=== PATIENT | male | born 1930 | race Caucasian/White ===

== ENCOUNTER 2018-03-27 17:58 | Observation (INO) | payer BC, MEDICARE ==
[~2018-03-27] VITALS: Ht 172.7 cm; Wt 91.2 kg
[~2018-03-27 17:58] MED LIST: CALCIUM; CALCIUM + VITA1 EACH; DIOVAN160 MG PO; LIPITOR20 MG PO; MULTAQ400 MG PO; NEXIUM40 MG PO; VITAMIN E; XARELTO20 MG PO; Z.0.ATORVASTATIN CA2; Z.0.DIOVAN160 MG PO; Z.0.NEXIUM40 MG PO; Z.0.VITAMIN C500 MG PO
[2018-03-27 18:25] LABS: BASOPHILS # (AUTO) 0.1 (0.0-0.1); BASOPHILS % 1.2 % (0.0-1.0); EOSINOPHILS # (AUTO) 0.1 (0.0-0.4); EOSINOPHILS % 2.3 % (0.0-6.0); HEMATOCRIT 42.3 % (38.2-49.6); HEMOGLOBIN 13.8 g/dL (14.0-18.0); LYMPHOCYTES # (AUTO) 1.1 (1.0-3.2); LYMPHOCYTES % 23.2 % (18.0-39.1); MEAN CORPUSCULAR HEMOGLOBIN 27.2 pg (28-32); MEAN CORPUSCULAR HGB CONC 32.6 g/dL (31-35); MEAN CORPUSCULAR VOLUME 83.4 fL (81-99); MONOCYTES # (AUTO) 0.3 (0.2-0.8); MONOCYTES % 6.4 % (4.4-11.3); NEUTROPHILS # (AUTO) 3.2 (2.1-6.9); NEUTROPHILS % 66.3 % (38.7-80.0); PLATELET COUNT 178 x10e3/uL (140-360); RED BLOOD COUNT 5.07 x10e6/uL (4.3-5.7); RED CELL DISTRIBUTION WIDTH 14.4 % (11.7-14.4)
[2018-03-27] MEDS ORDERED: ASPIRIN 81 MG CHEW TAB PO ONE (18:30)
[2018-03-27 18:40] LABS: ALANINE AMINOTRANSFERASE 21 IU/L (0-55); ALBUMIN/GLOBULIN RATIO 1.5 (0.8-2.0); ALKALINE PHOSPHATASE 104 IU/L (40-150); ANION GAP 13.4 mmol/L (8-16); BLOOD UREA NITROGEN 19 mg/dL (7-26); BUN/CREATININE RATIO 13 (6-25); CALCIUM 9.7 mg/dL (8.4-10.2); CARBON DIOXIDE 22 mmol/L (22-29); CHLORIDE 110 mmol/L (98-107); CREATINE KINASE 139 IU/L (30-200); CREATININE, SERUM 1.47 mg/dL (0.72-1.25); EST GLOMERULAR FILTRATION RATE 45 ML/MIN (60-); GLUCOSE 250 mg/dL (74-118); POTASSIUM 3.4 mmol/L (3.5-5.1); SODIUM 142 mmol/L (136-145)
[2018-03-27 18:41] LABS: INR 1.7; PROTHROMBIN TIME 18.8 seconds (11.9-14.5)
[2018-03-27 18:42] LABS: PARTIAL THROMBOPLASTIN TIME 36.5 seconds (23.8-35.5)
[2018-03-27 18:48] LABS: DIGOXIN < 0.30 ng/mL (0.8-2.0)
--- NOTE | 2018-03-27 18:54 | Diagnostic Imaging Report ---
PROCEDURE: Frontal and lateral views of the chest. COMPARISON: Patients [facility], DX, CHEST 2 VIEWS, 02/20/2015, 9:12. INDICATIONS: a-fib, sob today FINDINGS: Lines/tubes: None. Lungs: The lungs are well inflated and clear. There is no evidence of pneumonia or pulmonary edema. Pleura: There is no pleural effusion or pneumothorax. Heart and mediastinum: Cardiac silhouette is unremarkable. Pulmonary vessels are normal. Bones: No acute bony abnormality. IMPRESSION: 1. No acute cardiopulmonary abnormalities. Maco Montez M.D. Dictated by: Maco Montez M.D. on 03/27/2018 at 18:58 Electronically approved by: Maco Montez M.D. on 03/27/2018 at 18:58
[2018-03-27] MEDS ORDERED: DIGOXIN INJ 0.25 MG/ML 2 ML AMP IV ONE (19:00)
[2018-03-27 19:56] LABS: BILIRUBIN,URINE NEGATIVE (NEGATIVE); CLARITY,URINE CLEAR (CLEAR); COLOR,URINE YELLOW (YELLOW); KETONES,URINE NEGATIVE (NEGATIVE); LEUKOCYTE ESTERASE ,URINE NEGATIVE (NEGATIVE); NITRITE,URINE NEGATIVE (NEGATIVE); PROTEIN,URINE DIPSTICK 1+ (NEGATIVE); URINE UROBILINOGEN 1 mg/dL (0.2 - 1)
[2018-03-27 19:59] LABS: AMORPHOUS SEDIMENT,URINE RARE (FEW); EPITHELIAL CELLS,URINE FEW /LPF; MUCUS,URINE FEW (RARE)
[2018-03-27] MEDS ORDERED: DEXTROSE 50% SYRINGE 50 ML IV PRN (20:45)
[2018-03-27] MEDS ORDERED: ONDANSETRON HCL INJ 2 MG/ML VIAL IV PRN (20:45)
[2018-03-27 21:00] VITALS: BP 160/78
[2018-03-27] MEDS: INSULIN REGULAR, HUMAN 100 UNIT/1 ML 3ML VIAL SQ SCH (21:00)
[2018-03-27 21:20] VITALS: BP 160/78
[2018-03-27] MEDS ORDERED: POTASSIUM CHLORIDE 20 MEQ TAB CR PO STA (21:57)
[2018-03-27] MEDS ORDERED: DIGOXIN125 MCG PO (22:30)
[2018-03-27] MEDS: SODIUM CHLORIDE 0.9% 1000ML 1,000 ML IV SCH (22:56)
[2018-03-27] MEDS: FAMOTIDINE 20 MG/2 ML VIAL IV SCH (22:56)
[2018-03-28] VITALS (8 sets, daily range): BP systolic 122–160; BP diastolic 63–76
[2018-03-28 04:31] LABS: CREATINE KINASE MB 2.5 ng/mL (0-5.0)
[2018-03-28 06:31] LABS: BASOPHILS % 0.9 % (0.0-1.0); EOSINOPHILS # (AUTO) 0.1 (0.0-0.4); EOSINOPHILS % 2.6 % (0.0-6.0); HEMATOCRIT 37.5 % (38.2-49.6); HEMOGLOBIN 12.2 g/dL (14.0-18.0); LYMPHOCYTES # (AUTO) 1.1 (1.0-3.2); LYMPHOCYTES % 24.7 % (18.0-39.1); MEAN CORPUSCULAR HEMOGLOBIN 27.5 pg (28-32); MEAN CORPUSCULAR HGB CONC 32.5 g/dL (31-35); MEAN CORPUSCULAR VOLUME 84.7 fL (81-99); MONOCYTES # (AUTO) 0.4 (0.2-0.8); MONOCYTES % 9.2 % (4.4-11.3); NEUTROPHILS # (AUTO) 2.6 (2.1-6.9); NEUTROPHILS % 62.1 % (38.7-80.0); PLATELET COUNT 133 x10e3/uL (140-360); RED BLOOD COUNT 4.43 x10e6/uL (4.3-5.7); RED CELL DISTRIBUTION WIDTH 14.2 % (11.7-14.4)
[2018-03-28 06:55] LABS: ALANINE AMINOTRANSFERASE 17 IU/L (0-55); ALBUMIN 3.3 g/dL (3.5-5.0); ALBUMIN/GLOBULIN RATIO 1.5 (0.8-2.0); ALKALINE PHOSPHATASE 89 IU/L (40-150); ANION GAP 10.8 mmol/L (8-16); BLOOD UREA NITROGEN 16 mg/dL (7-26); BUN/CREATININE RATIO 15 (6-25); CALCIUM 8.9 mg/dL (8.4-10.2); CARBON DIOXIDE 21 mmol/L (22-29); CHLORIDE 114 mmol/L (98-107); CHOL/HDL RATIO 5.6 (3.9-4.7); CHOLESTEROL 134 MD/DL (0-199); CREATININE, SERUM 1.04 mg/dL (0.72-1.25); EST GLOMERULAR FILTRATION RATE > 60 ML/MIN (60-); GLUCOSE 110 mg/dL (74-118); HDL CHOLESTEROL 24 MG/DL (40-60); LDL CHOLESTEROL 83 MG/DL (60-130); POTASSIUM 3.8 mmol/L (3.5-5.1); SODIUM 142 mmol/L (136-145); TRIGLYCERIDES 136 MG/DL (0-149)
[2018-03-28 06:57] LABS: MAGNESIUM 1.1 MG/DL (1.3-2.1)
[2018-03-28] MEDS: INSULIN REGULAR, HUMAN 100 UNIT/1 ML 3ML VIAL SQ SCH ×4 (07:30→20:14)
[2018-03-28] MEDS ORDERED: MAGNESIUM SULFATE 2GM/50ML 50 ML IV ONE (07:30)
[2018-03-28] MEDS: SODIUM CHLORIDE 0.9% 1000ML 1,000 ML IV SCH ×3 (08:14→20:25)
[2018-03-28] MEDS: FAMOTIDINE 20 MG/2 ML VIAL IV SCH ×2 (08:14→20:13)
[2018-03-28 10:33] LABS: CREATINE KINASE MB 2.3 ng/mL (0-5.0)
[2018-03-28] MEDS ORDERED: LEVALBUTEROL HCL SOLN NEBU 0.63 MG/3 ML NEB INH ONE (15:00)
[2018-03-28] MEDS: IPRATROPIUM BROMIDE 0.02% 2.5 ML NEB NEB SCH ×2 (15:00→22:05)
[2018-03-28] MEDS ORDERED: HYDROCORTISONE SOD SUCCINATE 100 MG VIAL IV ONE (15:00)
[2018-03-28] MEDS ORDERED: SODIUM BICARBONATE 650 MG TAB PO ONE (15:30)
[2018-03-28] MEDS ORDERED: RIVAROXABAN 15 MG TABLET PO SCH (17:00)
--- NOTE | 2018-03-28 17:47 | History and Physical ---
HISTORY OF PRESENT ILLNESS: Patient is 87-year-old with past medical history positive for hypertension. Apparently he was shopping and he started having very fast palpitations and he started feeling nauseated, and he started feeling very weak, and called and came to the emergency room. He was found to have an atrial flutter with rapid ventricular response. Digoxin was given and heart rate now is back to normal. REVIEW OF SYSTEMS: CARDIOVASCULAR: He did have chest pain and palpitations when the heart rate was going fast, and now he is feeling better. RESPIRATORY: No shortness of breath. No cough. GASTROINTESTINAL: No nausea, vomiting or diarrhea. GENITOURINARY: No frequency and no dysuria. ALLERGIES: NOT ALLERGIC TO ANY MEDICATION. SOCIAL HISTORY: He does not smoke and does not drink. PAST MEDICAL HISTORY: Only positive for hypertension, according to the patient. He denies any cardiac condition. PHYSICAL EXAMINATION: VITAL SIGNS: Blood pressure 149/76, temperature 98 degrees, heart rate 61 per minute, respiratory rate is 18 per minute HEART: Irregular heart rate. Normal S1 and S2. No extra sounds. LUNGS: Clear bilaterally. ABDOMEN: Soft. EXTREMITIES: Show no evidence of cyanosis, edema or trauma. LABORATORY DATA: On the blood work we have BMP sodium 142, potassium 3.7, chloride 114. CO2 21, BUN 16, creatinine 1.04. Glucose 110. CBC: White blood count 4.25, hemoglobin 12.2, hematocrit 37.5, platelet count 153,000. PT 18.8. INR 1.70. PTT 36.5. AST 17, ALT 17. Total bilirubin 0.7, alkaline phosphatase of 89. EKG showed atrial collateral with by viable heart rate. No evidence of any ST segment elevation or depression. Current heart rate is in the 60s. FINAL IMPRESSION 1. Atrial flutter with rapid ventricular response with tachycardia. 2. Hypertension. PLAN OF TREATMENT: Patient received digoxin. The heart rate is in the 50s and 60s, so he does not need any beta catracho right now, only calcium channel catracho. Continue Pepcid 20 mg twice a day. Continue IV fluids. Will consult Dr. Ricketts for cardiology. Echocardiogram. TSH has been ordered. The patient is on telemetry also. Magnesium was replaced. We are going to follow up . Job#: [id number] CORTEZ
[2018-03-28] MEDS ORDERED: BUDESONIDE/FORMOTEROL 160/4.5MCG INHALER INH SCH (19:00)
--- NOTE | 2018-03-28 20:39 | Consultation ---
DATE OF CONSULTATION: March 27, 2018 CARDIOLOGY CONSULTATION ATTENDING PHYSICIAN: Dr. Anne. CLINICAL HISTORY: This is an 87-year-old white man known to our service from previous evaluations by Dr. Reggie Love, admitted via the senior care because of progressive shortness of breath of 2 days' duration with EKG showing atrial flutter with a rate of approximately 100 beats per minute. This patient was hospitalized in 2012, underwent nuclear stress test which showed ejection fraction of 64% without definite ischemic changes. The echocardiogram showed ejection fraction of 55% with mild mitral regurgitation and dilated left atrium. He had atrial flutter at that time. He was placed on Multaq and Xarelto. There is a history of hyperlipidemia. There is history of bleeding, but most recently the patient was taking Xarelto 20 mg per day. He was seen in the office in February. At that time, he was also taking Diovan 160 mg per day. As far as I know, he was off Multaq, although on his hospital medication list, he still on Multaq. He was seen by the emergency physician, was hospitalized. Cardiology consultation requested. PAST MEDICAL HISTORY: Remarkable for chronic atrial fibrillation dating back to 2007, hypertension, and hyperlipidemia. PAST SURGICAL HISTORY: Include cholecystectomy, TURP for benign prostatic hypertrophy. FAMILY HISTORY: Noncontributory. PERSONAL/SOCIAL HISTORY: He was a cigarette smoker, but has not smoked recently. Denies drinking. ALLERGIES: NONE KNOWN. REVIEW OF SYSTEMS: Noncontributory except for kidney stones remotely and bleeding. PHYSICAL EXAMINATION GENERAL: He is elderly, alert and coherent, appears to be short of breath. CARDIAC: Jugular veins are not distended. S1 and S2 were distant, irregular. LUNGS: Show diffuse wheezing. ABDOMEN: Soft. Bowel sounds are present. EXTREMITIES: Show no cyanosis, clubbing, or edema. LABORATORY STUDIES: Magnesium is 1.1. Electrolytes are normal. Bicarb is 21. Albumin is 3.3. Triglyceride 136, cholesterol 134, LDL 83, and HDL 24. Digoxin level was less than 0.3. Urinalysis showed 6 to 10 rbc's, 6 to 10 wbc's, 1+ protein, and 1+ blood. INR is 1.7. IMPRESSION 1. Shortness of breath, probably due to chronic obstructive pulmonary disease rather than congestive heart failure since previous ejection fractions were normal, although repeat echocardiogram may be worthwhile that has not been done since 2012. 2. Possible hypoadrenalism at his age, although the magnesium level is not elevated. 3. Chronic atrial flutter. 4. Microhematuria. 5. History of hyperlipidemia. 6. History of hypertension. RECOMMENDATION: I do not believe the patient would benefit from Multaq. Most recent office list did not include this medication. Because of microhematuria and his age, I recommend decrease the Xarelto from 20 mg to 15 mg per day. Because of his age, he can probably be off the Lipitor as well as Nexium, particularly if he has no GI complains at this time. He may be benefit from bronchodilators. I will give him one dose of Solu-Cortef to see if that would not help him. Thank you very much. Job#: [id number] MARLONU cc:ALEE ANNE MD
[2018-03-29 04:35] VITALS: BP 153/70
[2018-03-29] MEDS: IPRATROPIUM BROMIDE 0.02% 2.5 ML NEB NEB SCH (06:21)
[2018-03-29 07:01] LABS: ANION GAP 10.6 mmol/L (8-16); BLOOD UREA NITROGEN 16 mg/dL (7-26); BUN/CREATININE RATIO 16 (6-25); CALCIUM 8.5 mg/dL (8.4-10.2); CARBON DIOXIDE 20 mmol/L (22-29); CHLORIDE 117 mmol/L (98-107); CREATININE, SERUM 0.98 mg/dL (0.72-1.25); EST GLOMERULAR FILTRATION RATE > 60 ML/MIN (60-); GLUCOSE 136 mg/dL (74-118); MAGNESIUM 1.4 MG/DL (1.3-2.1); POTASSIUM 3.6 mmol/L (3.5-5.1); SODIUM 144 mmol/L (136-145)
[2018-03-29] MEDS: INSULIN REGULAR, HUMAN 100 UNIT/1 ML 3ML VIAL SQ SCH ×2 (07:30→12:26)
[2018-03-29] MEDS: SODIUM CHLORIDE 0.9% 1000ML 1,000 ML IV SCH (07:55)
[2018-03-29 08:02] VITALS: BP 154/69
[2018-03-29] MEDS: FAMOTIDINE 20 MG/2 ML VIAL IV SCH (08:53)
[2018-03-29] MEDS ORDERED: DIGOXIN 0.125 MG TAB PO SCH (09:00)
[2018-03-29] MEDS ORDERED: VALSARTAN 160 MG TAB PO SCH (09:00)
[2018-03-29] MEDS ORDERED: METOPROLOL SUCCINATE 50 MG TAB XL PO SCH (09:00)
[2018-03-29 12:40] VITALS: BP 155/67
--- NOTE | 2018-03-29 13:03 | Cardiology Report ---
DATE OF STUDY: March 28, 2018 ECHOCARDIOGRAM M-MODE: Top normal left atrial size. Normal left ventricular wall thickness, contractility. Normal mitral aortic valves. No pericardial effusion. SECTOR SCAN: Top normal left atrial size. Borderline left ventricular hypertrophy. Normal contractility. Normal mitral and aortic valves. No pericardial effusion. CARDIAC DOPPLER STUDY WITH COLOR: Trace mitral tricuspid and pulmonic regurgitation. CONCLUSIONS: 1. Borderline left ventricular hypertrophy with ejection fraction of approximately 60%. 2. Trace mitral regurgitation with top normal left atrial size. 3. Trace tricuspid and pulmonic regurgitation. Job#: [id number] cc:ALEE ANNE MD
[2018-03-29] MEDS ORDERED: ACETAMINOPHEN 325 MG TAB PO PRN (13:15)
--- NOTE | 2018-03-30 00:26 | Discharge Summary ---
HISTORY OF PRESENT ILLNESS: [id number] male with past medical history positive for atrial flutter, chronic atrial fibrillation, hypertension, hyperlipidemia, came with shortness of breath. EKG showed atrial flutter. Patient is doing fine. Troponins are negative. Patient has been seen by Dr. Ricketts whose impression is that he has had A-flutter, AFib and he recommended patient to continue taking low-dose Xarelto. PHYSICAL EXAM: Heart: Showed irregularly irregular heart rate, normal S1 and S2 sounds. Lungs: Clear bilaterally. Abdomen: Soft. FINAL IMPRESSION: 1. Episode of atrial flutter, atrial fibrillation with rapid ventricular response, which is resolved right now. 2. History of hypertension. 3. Questionable chronic obstructive pulmonary disease. Patient is going to be discharged home on the following medications: Digoxin 0.125 mg daily, Diovan 160 mg daily, Xarelto 15 mg daily, budesonide twice a day. Follow up with Dr. Reggie Love, cardiology in a week. ALEE ANNE MD Job#: [id number]
== END 2018-03-29 14:14 | disposition home or self-care (01) ==
LOC: ER 17:58 → ERHOLD 20:56 → IMCU 21:18
PROVIDERS: ADMIT Internal Medicine; ATTEND Internal Medicine
DX: I48.92 Unspecified atrial flutter (principal); I10 Essential (primary) hypertension; E11.9 Type 2 diabetes mellitus without complications; I51.9 Heart disease, unspecified; J44.9 Chronic obstructive pulmonary disease, unspecified; R31.29 Other microscopic hematuria; E78.5 Hyperlipidemia, unspecified; E83.42 Hypomagnesemia; I48.2 Chronic atrial fibrillation
CPT/HCPCS: 36415 ×3; 71046; 80048; 80053 ×2; 80061; 80162; 81001; 82550 ×2; 82553 ×2; 82948 ×3; 83735 ×2; 83880; 84132; 84443; 84484 ×2; 85025 ×2; 85610; 85730; 93005 ×2; 93306; 94640 ×4; 99284; G0378 ×3; J1160; J1720; J7030 ×3